=== PATIENT | male | born 1990 | race Caucasian/White ===

== ENCOUNTER 2020-08-20 20:04 | Emergency (ER) | payer BC ==
[~2020-08-20] VITALS: Ht 190.5 cm; Wt 113.6 kg
[2020-08-20 20:23] VITALS: TEMP 97.2
[2020-08-20 22:34] VITALS: BP 138/99; PULSE 65
== END 2020-08-20 22:39 | disposition home or self-care (01) ==
LOC: COL.ER 20:04
DX: S51.012A Laceration without foreign body of left elbow, initial encounter (principal); W11.XXXA Fall on and from ladder, initial encounter